=== PATIENT | female | born 1970 | race Caucasian/White ===

== ENCOUNTER 2023-04-02 07:59 | Emergency (ER) | payer BC ==
[2023-04-02 08:14] VITALS: BP 119/72; PULSE 66; RESP 20; TEMP 98.3
[2023-04-02] MEDS ORDERED: diphenhydrAMINE 50 MG/ML 1 ML VIAL IM STA (09:25)
[2023-04-02] MEDS ORDERED: methylPREDNISolone SOD SUCCI 125 MG/2 ML VIAL IM ONE (09:25)
--- NOTE | 2023-04-02 09:26 | ED ---
General Adult HPI - General Chief complaint: Skin/Abscess/Foreign Body Stated complaint: swelling from mosquito bites Time Seen by Provider: 04/02/23 09:08 Source: patient, RN notes reviewed Mode of arrival: ambulatory Limitations: no limitations - History of Present Illness Initial comments: 52-year-old female with no significant past medical history presents to the emergency department with a chief complaint of bug bites. Patient reports that she was [place] with the mosquitoes have been biting her. She is complaining of worsening pain and redness and itchiness to multiple bug bites on bilateral elbows. She's been taking Benadryl with mild symptomatic relief. She reports worsening redness after waking up this morning. She denies any shortness of breath cough or difficulty in breathing. She reports that she has a bee sting sensitivity. - Related Data Previous Rx's Medication Instructions Recorded predniSONE 50 mg PO DAILY #5 tab 04/02/23 Allergies Allergy/AdvReac Type Severity Reaction Status Date / Time meperidine [From Demerol] Allergy Nausea & Verified 04/02/23 08:14 Vomiting Review of Systems ROS Statement: Those systems with pertinent positive or pertinent negative responses have been documented in the HPI. ROS Other: All systems not noted in ROS Statement are negative. Past Medical History Past Medical History: No Reported History History of Any Multi-Drug Resistant Organisms: None Reported Past Surgical History: Hernia Repair Past Psychological History: No Psychological Hx Reported Smoking Status: Never smoker Past Alcohol Use History: None Reported Past Drug Use History: None Reported General Exam - General Exam Comments Initial Comments: General: Alert, in no acute distress Head: atraumatic normocephalic. Eyes PERRL, EOMI intact, mucous membranes moist Respiratory: Lungs clear to auscultation bilaterally Cardiovascular: Heart rate regular rate and rhythm Abdominal: Soft without guarding or rebound Extremities: Normal inspection with full range of motion and normal capillary refill, bilateral arms and forearms with circular erythematous flat nontender lesions consistent with mosquito bites Neuroogic: alert and oriented 3, CN II-XII intact, able to ambulate with steady gait Skin: warm dry and intact with normal color Limitations: no limitations Course Vital Signs 04/02/23 08:11 Temperature 98.3 F Pulse Rate 66 Respiratory 20 Rate Blood Pressure 119/72 O2 Sat by Pulse 99 Oximetry Medical Decision Making - Medical Decision Making Was pt. sent in by a medical professional or institution (BERTHA Conn, CUSTOMER LEADER, urgent care, hospital, or skilled nursing...) When possible be specific @ -[No] Did you speak to anyone other than the patient for history (EMS, parent, family, police, friend...)? What history was obtained from this source @ -[No] Did you review nursing and triage notes (agree or disagree)? Why? @ -[I reviewed and agree with nursing and triage notes] Were old charts reviewed (outside hosp., previous admission, EMS record, old EKG, old radiological studies, urgent care reports/EKG's, skilled nursing records)? Report findings @ -[No old charts were reviewed] Differential Diagnosis (chest pain, altered mental status, abdominal pain women, abdominal pain men, vaginal bleeding, weakness, fever, dyspnea, syncope, headache, dizziness, GI bleed, back pain, seizure, CVA, palpatations, mental health, musculoskeletal)? @ -[not applicable] EKG interpreted by me (3pts min.). @ -[As above] X-rays interpreted by me (1pt min.). @ -[None done] CT interpreted by me (1pt min.). @ -[None done] U/S interpreted by me (1pt. min.). @ -[None done] What testing was considered but not performed or refused? (CT, X-rays, U/S, labs)? Why? @ -[None] What meds were considered but not given or refused? Why? @ -[None] Did you discuss the management of the patient with other professionals (professionals i.e. BERTHA Conn, CUSTOMER LEADER, lab, RT, psych nurse, social worker masters, varitypist, teacher, guest services officer, case sealer)? Give summary @ -[No] Was smoking cessation discussed for >3mins.? @ -[No] Was critical care preformed (if so, how long)? @ -[No] Were there social determinants of health that impacted care today? How? (Homelessness, low income, unemployed, alcoholism, drug addiction, transportation, low edu. Level, literacy, decrease access to med. care, senior living, rehab)? @ -[No] Was there de-escalation of care discussed even if they declined (Discuss DNR or withdrawal of care, Hospice)? DNR status @ -[No] What co-morbidities impacted this encounter? (DM, HTN, Smoking, COPD, CAD, Ca ncer, CVA, ARF, Chemo, Hep., AIDS, mental health diagnosis, sleep apnea, morbid obesity)? @ -[None] Was patient admitted / discharged? Hospital course, mention meds given and route, prescriptions, significant lab abnormalities, going to OR and other pertinent info. @ -Discharged. This is a pleasant 52-year-old female who presents to the emergency department with a chief complaint of bug bites. Patient is a thorough history and physical exam performed on the ED. Physical exam reveals multiple erythematous, flat circular lesions consistent with irritated bug bites on bilateral arms. Patient will be given Solu-Medrol and Benadryl in the ED. Patient provided prescription for prednisone for the next 5 days. Return precautions were discussed at length including worsening shortness of breath, dyspnea, difficulty in breathing. Patient discharged in stable condition. Case discussed with KYLE Hoyt who agrees with plan of care Undiagnosed new problem with uncertain prognosis? @ -[No] Drug Therapy requiring intensive monitoring for toxicity (Heparin, Nitro, I nsulin, Cardizem)? @ -[No] Were any procedures done? @ -[No] Diagnosis/symptom? @ -Mosquito Bite - Allergic RXN Acute, or Chronic, or Acute on Chronic? @ -Acute Uncomplicated (without systemic symptoms) or Complicated (systemic symptoms)? @ -Uncomplicated Side effects of treatment? @ -[No] Exacerbation, Progression, or Severe Exacerbation? @ -[No] Poses a threat to life or bodily function? How? (Chest pain, [place], [place], pneumonia, PE, COPD, DKA, ARF, appy, cholecystitis, CVA, Diverticulitis, Homicidal, Suicidal, threat to staff... and all critical care pts) @ -Low likelihood Disposition Clinical Impression: Mosquito bite, Allergic reaction Disposition: HOME SELF-CARE Condition: Stable Additional Instructions: Please continue taking Benadryl Can apply cortisone 10 to the area Please return to the nearest emergency department if shortness of breath or difficulty in breathing develop Prescriptions: predniSONE 50 mg PO DAILY #5 tab Is patient prescribed a controlled substance at d/c from ED?: No Referrals: Nonstaff,Physician [Primary Care Provider] - 1-2 days Time of Disposition: 09:26
== END 2023-04-02 10:12 | disposition home or self-care (01) ==
LOC: EC 07:59
DX: S50.362A Insect bite (nonvenomous) of left elbow, initial encounter (principal); S50.361A Insect bite (nonvenomous) of right elbow, initial encounter; T63.441A Toxic effect of venom of bees, accidental (unintentional), initial encounter; Z88.1 Allergy status to other antibiotic agents; Z88.5 Allergy status to narcotic agent
CPT/HCPCS: 99282; 96372 ×2; J1200; J2930